=== PATIENT | female | born 2005 | race American Indian/Alaskan Native ===

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

== ENCOUNTER 2024-05-11 19:25 | Emergency (ER) | payer OTHER, SELFPAY ==
[2024-05-11 19:38] VITALS: BP 143/64; PULSE 77; RESP 16; TEMP 37.1; O2SAT 98; BMI 31.1
--- NOTE | 2024-05-11 19:38 | DI.RAD.S_ITS ---
PROCEDURE: XR FINGER LT MIN 2V INDICATIONS: injury TECHNIQUE: AP hand, 2 views of the 4th finger(s) acquired. COMPARISON: None. FINDINGS: Bones: There is an intra-articular fracture involving the proximal aspect of the distal phalanx of the 4th finger. Soft tissues: No suspicious soft tissue calcifications. IMPRESSION: Intra-articular fracture involving the proximal aspect of the distal phalanx of the 4th finger. Dictated by: Fernando Roberts M.D. on 05/11/2024 at 19:02 Approved by: Fernando Roberts M.D. on 05/11/2024 at 19:03
[2024-05-11 21:57] VITALS: BP 128/66; PULSE 87; RESP 18; TEMP 36.6; O2SAT 98
--- NOTE | 2024-05-11 22:23 | ED.UPPEXIN ---
HPI - Extremity Injury (Upper) General Chief Complaint: Extremity Injury, Upper Stated Complaint: poss broken finger left hand Time Seen by Provider: 05/11/24 22:23 Source: patient, RN notes reviewed and old records reviewed Mode of arrival: Ambulatory Limitations: no limitations History of Present Illness HPI narrative: 19-year-old female no reported medical issues complaint of finger pain the 4th digit of the left hand caught in a car window as the window was being closed in the car was turned off has some swelling decreased range of motion and pain. Patient states significant other who was rolling up the window they did not realize it. Finger was stuck in the window for a few minutes. Patient has pain no numbness or tingling. Painful to try to flex and extend the distal finger but everything else moves his normally. No cuts or lacerations that they appreciate. No other injuries. States no daily medications. Denies any major surgeries. No regular tobacco, alcohol or recreational drugs. Related Data Previous Rx's Medication Instructions Recorded azithromycin 250 mg tablet See Rx Instructions PO .COMPLEX #6 01/29/21 tabs ciprofloxacin HCl 500 mg tablet 500 mg PO BID #14 tabs 01/29/21 Allergies Allergy/AdvReac Type Severity Reaction Status Date / Time amoxicillin Allergy Intermediate Rash Verified 06/13/21 23:05 sulfamethoxazole Allergy Intermediate Rash Verified 06/13/21 23:05 [From ] trimethoprim [From ] Allergy Intermediate Rash Verified 06/13/21 23:05 Review of Systems Review of Systems ROS Unobtainable: All systems reviewed & are unremarkable except as noted in HPI and below Patient History Medical History Healthy female adolescent Exam Narrative Exam Narrative: GENERAL: Alert and oriented x three, female in mild distress HEENT: Head normocephalic, atraumatic, EOMI, pupils reactive, face symmetric, moist mucous membranes NECK: Supple, full range of motion CARDIOVASCULAR: Regular rate and rhythm without murmurs, rubs or gallops. RESPIRATORY: Breath sounds equal bilaterally, no wheezes rales or rhonchi. ABDOMEN: Soft, nontender. Normoactive bowel sounds all 4 quadrants. No guarding or rebound, rigidity, no mass EXTREMITIES: Normal range of motion with decrease movement at distal 4th finger at the distal joint, mild swelling, patient was tenderness over the distal interphalangeal joint. She has a little bit of ecchymosis of the nail but no subungual hematoma. Nail is intact. Skin is intact. There was no abrasions. Patient has a little bit difficulty fully flexing and standing but it was quite painful. Able to passively extend and flex. No clubbing or edema. Neurovascularly intact NEUROLOGICAL: Cranial nerves II through XII grossly intact. Moving all extremities SKIN: Warm, dry, no petechiae, no rashes or lesions. Initial Vital Signs Initial Vital Signs: Vital Signs Temperature 98.8 F 05/11/24 19:38 Pulse Rate 77 05/11/24 19:38 Respiratory Rate 16 05/11/24 19:38 Blood Pressure 143/64 H 05/11/24 19:38 Pulse Oximetry 98 05/11/24 19:38 Oxygen Delivery Method Room Air 05/11/24 19:38 Course Orders Ordered: ED Orders 05/11/24 19:38 XR finger LT min 2V Stat Vital Signs Vital signs: Vital Signs - 8 hr 05/11/24 23:26 05/11/24 23:27 05/11/24 23:27 Pulse Rate 75 71 Blood Pressure 122/58 L Pulse Oximetry 99 99 05/11/24 23:30 05/11/24 23:30 Pulse Rate 70 Blood Pressure 112/58 L Pulse Oximetry 98 MDM - Extremity Injury (Upper) MDM Narrative Medical decision making narrative: Left finger x-ray shows intra-articular fracture involving proximal aspect of the distal phalanx of the 4th finger. Patient placed in splint, follow up with Orthopedic surgery. Plan for acetaminophen and/or ibuprofen as needed for pain. Ice PRN. Discharge Plan Departure Patient Disposition: Home Clinical Impression: Finger fracture, left Instructions: DI for Finger Fracture Activity Restrictions/Additional Instructions: Follow up for recheck in the next week. You have a fracture at the joint of the distal 4th finger. Follow up for rechecked to make sure this is healing appropriately and does not need any additional interventions. Contacts included below for Orthopedic surgery. You can take acetaminophen up to a 1000 mg every 6 hours and/or ibuprofen up to 600 mg every 6 hours as needed. You can remove the splint to wash and shower. Splint Care: Keep splint clean and dry. Elevated affected body part to decrease swelling. OK to use ice pack on the affected body part. Use for 15-20 minutes each time, for 5-6x per day. If you develop worsening pain, numbness, tingling, discoloration of the affected body part, loosen the splint by loosening the JACQUI wrap, and either see your doctor for an urgent re-assessment, or return to the Emergency Department. Return to the Emergency Department for any new or worsening symptoms. Prescriptions: No Action ciprofloxacin HCl 500 mg tablet 500 mg PO BID Qty: 14 0RF azithromycin 250 mg tablet See Rx Instructions .ROUTE .COMPLEX Qty: 6 0RF Rx Instructions: For 250 mg dose pack: take 500 mg today (day 1), then 250 mg for 4 days (days 2-5) Referrals: Emily Kim MD [Physician] - Capo Stallworth PA-C [Primary Care Provider] - Stand Alone Forms: Patient Portal/API/Survey
[2024-05-11 23:26] VITALS: PULSE 75; O2SAT 99
[2024-05-11 23:27] VITALS: BP 122/58; PULSE 71; O2SAT 99
[2024-05-11 23:30] VITALS: BP 112/58; PULSE 70; O2SAT 98
== END 2024-05-12 00:17 | disposition home or self-care (01) ==
PROVIDERS: Emergency Provider Emergency Medicine; PCP Physician Assistant
DX: S62.615A Displaced fracture of proximal phalanx of left ring finger, initial encounter for closed fracture (principal); W23.0XXA Caught, crushed, jammed, or pinched between moving objects, initial encounter
CPT/HCPCS: 29130; 73140; 99281; 99283